=== PATIENT | male | born 1995 | race Caucasian/White ===

== ENCOUNTER 2020-07-02 03:09 | Emergency (ER) | payer MEDICAID ==
[~2020-07-02] VITALS: Ht 180.3 cm; Wt 86.2 kg
[2020-07-02 03:14] VITALS: Ht 180.3 cm; Wt 86.2 kg
[2020-07-02 05:42] VITALS: BP 99/57
== END 2020-07-02 05:42 | disposition home or self-care (01) ==
LOC: ED 03:09
DX: R51 Headache (principal); F41.9 Anxiety disorder, unspecified
CPT/HCPCS: J1885; J2765; J7030